=== PATIENT | male | born 1955 | race Caucasian/White ===

== ENCOUNTER → 2018-11-25 08:26 | Outpatient (CLI) | payer MEDICARE, OTHER, SELFPAY ==
[2018-11-25 09:36] LABS: Add Manual Diff / Slide Review NO; Basophils Absolute Auto 0 /uL (0-100); Basophils Percent Auto 0.7 % (0-2); Eosinophils Absolute Auto 200 /uL (0-450); Eosinophils Percent Auto 2.6 % (2-4); Hematocrit 48.4 % (41-53); Hemoglobin 16.1 g/dL (13.5-17.5); Lymphocytes Absolute Auto 800 /uL (1100-4500); Lymphocytes Percent Auto 13.7 % (25-40); Mean Corpuscular HGB Conc 33.3 % (30-36); Mean Corpuscular Hemoglobin 29.8 PG (26-34); Mean Corpuscular Volume 89.4 fL (80-100); Monocytes Absolute Auto 600 /uL (0-900); Monocytes Percent Auto 9.6 % (3-14); Neutrophils Absolute Auto 4300 /uL (1500-7000); Neutrophils Percent Auto 73.4 % (50-75); Platelet Count 215 X10^3/uL (150-400); Red Blood Cell Count 5.41 X10^6/uL (4.5-5.9); Red Cell Distribution Width 15.3 % (11.6-14.8); White Blood Cell Count 5.9 X10^3/uL (4.5-11.0)
[2018-11-25 10:05] LABS: Alanine Aminotransferase 28 IU/L (21-72); Albumin 4.1 g/dL (3.5-5.0); Albumin Globulin Ratio 1.4 (1.0-2.8); Alkaline Phosphatase 89 U/L (38-126); Aspartate Aminotransferase 31 IU/L (17-59); BUN Creatinine Ratio 14.2 (6-22); Bilirubin Total 0.6 mg/dL (0.2-1.3); Blood Urea Nitrogen 17 mg/dL (9-20); Calcium 8.8 mg/dL (8.4-10.2); Carbon Dioxide 26 mmol/L (22-32); Chloride 106 mmol/L (98-107); Cholesterol 195 mg/dL (140-199); Estimated Glomerular Filt Rate > 60.0 mL/min (>60); Glucose 84 mg/dL (80-110); HDL Cholesterol 43 mg/dL (40-60); HEMOLYSIS < 15 (0-50); LDL Cholesterol Calculated 129 mg/dL (<100); Potassium 4.2 mmol/L (3.4-5.1); Sodium 141 mmol/L (137-145); Total Protein 7.1 g/dL (6.3-8.2); Triglycerides 116 mg/dL (35-150)
[2018-11-25 10:08] LABS: Hemoglobin A1C% w Est Avg Glu 5.4 % (4.0-6.0)
[2018-11-25 10:34] LABS: Prostate Specific Antigen Scrn 2.34 ng/mL (0.1-4.0)
== END ==
PROVIDERS: Visit Provider Physician Assistant
DX: N39.0 Urinary tract infection, site not specified (principal); R31.9 Hematuria, unspecified; Z12.5 Encounter for screening for malignant neoplasm of prostate; I11.0 Hypertensive heart disease with heart failure; E78.5 Hyperlipidemia, unspecified; Z83.3 Family history of diabetes mellitus
CPT/HCPCS: 36415; 80053; 80061; 83036; 85025; G0103

== ENCOUNTER → 2018-11-27 11:14 | Outpatient (CLI) | payer MEDICARE, OTHER, SELFPAY ==
--- NOTE | 2018-11-27 | DI.CT.S_ITS ---
PROCEDURE: CT ABDOMEN PELVIS WO/W CON INDICATIONS: GROSS HEMATURIA TECHNIQUE: Optional 5 mm thick noncontrast images acquired from the diaphragm to the symphysis pubis. After the administration of intravenous contrast, 5 mm thick images acquired from the diaphragm to the symphysis pubis after a 10-minute delay. 2 mm thick coronal and sagittal reformats were then performed of the kidneys and ureters. For radiation dose reduction, the following was used: automated exposure control, adjustment of mA and/or kV according to patient size. COMPARISON: None. FINDINGS: Image quality: Excellent. Lung bases: Lung bases are clear. Heart size is normal. Urinary system: Both kidneys are normal in size, without hydronephrosis or nephrolithiasis on pre-contrast images. Small bilateral peripelvic cysts are seen No perinephric fat stranding. There is normal bilateral renal enhancement. Renal calyces appear normal in morphology when filled with contrast. Opacified portions of both ureters demonstrate normal caliber. Mild diffuse bladder wall thickening is seen. Enlarged prostate gland with mass effect on floor of urinary bladder is also noted. No definite discrete bladder wall mass. No calcified bladder stones. Appendix is visualized and is within normal limits sigmoid diverticulosis is seen, no CT evidence of acute diverticulitis. Other solid organs: Liver is normal in size and enhancement. Gallbladder is within normal limits. Biliary system is non dilated. Pancreas enhances normally. Spleen is normal in size and enhancement. No adrenal nodules. Peritoneum and bowel: Bowel loops demonstrate normal wall thickness and caliber. No free fluid or air. Nodes and vessels: No retroperitoneal or mesenteric adenopathy by size criteria. Aorta and inferior vena cava are normal in size. Abdominal wall: No ventral hernias. Pelvis: No pathologic free pelvic fluid. No inguinal hernias or adenopathy. Bones: No suspicious bony lesions. No vertebral body compression fractures. IMPRESSION: 1. Mild diffuse bladder wall thickening, no discrete bladder wall mass. Enlarged prostate gland with significant mass effect on floor of urinary bladder. Finding could represent chronic bladder outlet obstruction. Cystitis cannot be excluded. No renal stone hydronephrosis. Normal appearing bilateral ureters. 2. No bowel obstruction. No abnormal bowel wall thickening. Normal appendix. No free fluid of air. Dictated by: Henry Marquez M.D. on 11/27/2018 at 12:40 Approved by: Henry Marquez M.D. on 11/27/2018 at 14:24
== END ==
PROVIDERS: PCP Internal Medicine; Visit Provider Internal Medicine
DX: R31.0 Gross hematuria (principal); N40.0 Benign prostatic hyperplasia without lower urinary tract symptoms
CPT/HCPCS: 74178; Q9967

== ENCOUNTER → 2020-05-06 08:43 | Outpatient (CLI) | payer MEDICARE, OTHER, SELFPAY ==
[2020-05-06 09:59] LABS: Alanine Aminotransferase 33 IU/L (<50); Albumin 4.1 g/dL (3.5-5.0); Albumin Globulin Ratio 1.2 (1.0-2.8); Alkaline Phosphatase 98 U/L (38-126); Aspartate Aminotransferase 33 IU/L (17-59); BUN Creatinine Ratio 17.3 (6-22); Bilirubin Total 0.6 mg/dL (0.2-1.3); Blood Urea Nitrogen 19 mg/dL (9-20); Carbon Dioxide 32 mmol/L (22-32); Chloride 103 mmol/L (98-107); Cholesterol 140 mg/dL (140-199); Estimated Glomerular Filt Rate > 60.0 mL/min (>60); Globulin 3.4 g/dL (1.7-4.1); Glucose 92 mg/dL (80-110); HDL Cholesterol 43 mg/dL (40-60); HEMOLYSIS < 15 (0-50); LDL Cholesterol Calculated 73 mg/dL (<100); Potassium 4.5 mmol/L (3.4-5.1); Sodium 140 mmol/L (137-145); Total Protein 7.5 g/dL (6.3-8.2); Triglycerides 121 mg/dL (35-150)
[2020-05-07 06:07] LABS: PSA Free % 25.9 % (.); PSA, Total 2.2 ng/mL (0.0-4.0)
== END ==
PROVIDERS: PCP Internal Medicine; Referring Provider Internal Medicine; Visit Provider Internal Medicine
DX: I10 Essential (primary) hypertension (principal); E78.5 Hyperlipidemia, unspecified; Z12.5 Encounter for screening for malignant neoplasm of prostate
CPT/HCPCS: 36415; 80053; 80061; 84153; 84154; G0103

== ENCOUNTER → 2020-09-13 10:05 | Outpatient (CLI) | payer MEDICARE, OTHER, SELFPAY ==
[2020-09-13 11:47] LABS: COVID19 -Nasal RAPID Negative (Negative)
== END ==
PROVIDERS: PCP Internal Medicine; Visit Provider Student in an Organized Health Care Education/Training Program
DX: Z01.812 Encounter for preprocedural laboratory examination (principal); Z20.822 Contact with and (suspected) exposure to COVID-19
CPT/HCPCS: 87635; C9803

== ENCOUNTER 2020-09-15 07:27 | Day surgery (SDC) | payer MEDICARE, OTHER, SELFPAY ==
--- NOTE | 2020-09-15 | PATH_ITS ---
[facility] Accession Number: [id number] . 01 Material submitted: . PART A: colon - ASCENDING PART B: colon - TRANSVERSE . 02 Diagnosis: A. Ascending Colon, Biopsy: Tubular adenoma. . B. Transverse Colon, Biopsy: Tubular adenoma. MRV 09/20/2020 1519 Local . 02 Electronically signed: . Bing Russell MD, Pathologist NPI- [id number] . 01 Gross description: . A. Specimen A is received in formalin labeled ascending and consists of two urbano-pink fragments of soft tissue, measuring 0.5 x 0.4 x 0.3 cm in aggregate. The specimen is entirely submitted in cassette A1. B. Specimen B is received in formalin labeled transverse and consists of a 0.3 x 0.3 x 0.2 cm urbano-pink fragment of soft tissue, which is entirely submitted in cassette B1. ([id number]) /[facility] 09/16/2020 1636 Local . 02 Pathologist provided ICD-10: D12.2, D12.6 . 02 CPT . 423802, 184242 Performed at: 01 [facility] [address] [facility] [place], [place], [place] [id number] MD Malcolm Cohen MD Phone: [phone] Performed at: 02 [facility] [address] [place], [place] [id number] MD Bing Russell MD Phone: [phone]
[2020-09-15 08:09] VITALS: BP 118/70; PULSE 53; RESP 18; TEMP 36.3; O2SAT 95; BMI 37.6
--- NOTE | 2020-09-15 08:30 | PM.HP.1 ---
History of Present Illness History of Present Illness Date Patient Seen: 09/15/20 Chief complaint: SDC Narrative: History of polyps Patient History Family & Social History Social History: household members spouse Tobacco & Substance use: Smoking Status Never smoker alcohol intake never Substance Use Type does not use Meds Home Medications and Allergies Home Medications Medication Instructions Recorded Confirmed Type Eliquis 5 mg PO BID #0 02/05/16 09/15/20 History flecainide 100 mg PO SEE INSTRUCTIONS #0 02/05/16 09/15/20 History losartan [Cozaar] 25 mg PO BIDP PRN #0 02/05/16 09/15/20 History timolol maleate 1 drp OPHTH #0 02/05/16 11/23/18 History latanoprost EYE-BOTH 11/23/18 11/23/18 History Allergies Allergy/AdvReac Type Severity Reaction Status Date / Time shellfish derived Allergy Intermediate Swelling Verified 09/15/20 08:06 of Lip/Tongue/Throat Exam Vital Signs (past 8 hours): - 09/15/20 08:09 Temperature 97.4 F L Pulse Rate 53 L Respiratory Rate 18 Blood Pressure 118/70 Pulse Oximetry 95 Oxygen Delivery Method Room Air Narrative Exam Narrative: Oropharynx free of lesion Chest clear to auscultation percussion Cardiac exam reveals no S3 or murmur Assessment & Plan Assessment & Plan narrative: History of colon polyps need for follow-up colonoscopy. Risks, benefits, alternatives have been explained.
--- NOTE | 2020-09-15 08:33 | PM.OP.ENDO ---
Operative Date/Time/Diagnoses Date of procedure: 09/15/20 Pre-op diagnosis: See indication and findings Procedure & Clinicians Study performed: Colonoscopy Same procedure as scheduled: Yes Indications: History of colon polyps Surgeon: Keshawn Carlson Procedure Notes Procedure in detail: After informed consent was obtained the patient was placed in left lateral decubitus position. The video colonoscope was introduced the rectum slowly advanced cecum. Preparation was good. On slow withdrawal mucosa was carefully examined. The scope was removed. The patient tolerated procedure well. Blood loss none Complications none Sedation Total sedation time 20 minutes Versed 4 mg fentanyl 100 mg IV titration Findings 1. 5 mm polyp ascending colon Jumbo biopsy removed completely 2. 4 mm polyp in the transverse colon Jumbo biopsy removed completely 3. Scattered sigmoid diverticula 4. Otherwise negative colonoscopy to cecum We will merely await the pathology from these polypectomies to determine whether he should follow-up in 5 years for 7-10 years
[2020-09-15] MEDS: MIDAZOLAM 5 MG/5 ML VIAL IV (08:34)
[2020-09-15] MEDS: fentaNYL 250 MCG/5 ML INJ IV (08:34)
[2020-09-15 09:03] VITALS: BP 96/53; PULSE 54; RESP 16; TEMP 36.1; O2SAT 95
[2020-09-15 09:08] VITALS: BP 99/62; PULSE 50; RESP 18; O2SAT 96
[2020-09-15 09:12] VITALS: BP 109/64; PULSE 50; RESP 16; TEMP 36.6; O2SAT 94
[2020-09-15 09:33] VITALS: BP 116/67; PULSE 54; RESP 18; TEMP 36.4; O2SAT 95
== END 2020-09-15 09:37 | disposition home or self-care (01) ==
PROVIDERS: PCP Internal Medicine; Referring Provider Internal Medicine; Visit Provider Internal Medicine Gastroenterology
PROC: 0DJD8ZZ Inspection of Lower Intestinal Tract, Via Natural or Artificial Opening Endoscopic (ICD-10-PCS; CPT 45378; principal; 2020-09-15 08:30)
DX: Z12.11 Encounter for screening for malignant neoplasm of colon (principal); Z86.010 Personal history of colon polyps; K57.30 Diverticulosis of large intestine without perforation or abscess without bleeding; D12.2 Benign neoplasm of ascending colon; D12.6 Benign neoplasm of colon, unspecified
CPT/HCPCS: 45380; J2250; J3010

== ENCOUNTER → 2021-11-11 12:06 | Outpatient (CLI) | payer MEDICARE, OTHER, SELFPAY ==
--- NOTE | 2021-11-11 | DI.US.S_ITS ---
PROCEDURE: US ABDOMEN COMPLETE INDICATIONS: EXCESSIVE BELCHING TECHNIQUE: Real-time scanning was performed of the abdominal and retroperitoneal organs, with image documentation. COMPARISON: None. FINDINGS: Liver: Liver is normal in size and homogeneous in echotexture. Gallbladder: Gallbladder is sonographically normal. No gallstones. No gallbladder wall thickening. No pericholecystic fluid. No sonographic Peters sign. Biliary ducts: Intrahepatic bile ducts are non-dilated. Extrahepatic bile duct caliber measures 3.8 mm. Normal is 6-7 mm or less in diameter, or 10 mm or less post-cholecystectomy. Pancreas: Not visualized due to bowel gas and cannot be evaluated Spleen: Spleen is normal in size and homogeneous in echotexture. Kidneys: Kidneys are normal in size and echotexture. Right kidney measures 12.6 cm long; left kidney measures 13.1 cm long. No hydronephrosis or nephrolithiasis. No solid masses. 1.4 x 1.2 x 1.2 centimeter left renal cyst. Aorta: Not visualized due to bowel gas and cannot be evaluated. Iliacs: Not visualized due to bowel gas and cannot be evaluated IVC: Intrahepatic inferior vena cava is patent. Miscellaneous: No free abdominal fluid. IMPRESSION: No sonographic abnormality identified. Dictated by: Sara Flores MD, PhD on 11/11/2021 at 15:03 Approved by: Sara Flores MD, PhD on 11/11/2021 at 15:05
== END ==
PROVIDERS: PCP Internal Medicine; Referring Provider Internal Medicine Gastroenterology; Visit Provider Internal Medicine Gastroenterology
DX: R14.2 Eructation (principal)
CPT/HCPCS: 76700

== ENCOUNTER → 2021-11-30 07:33 | Outpatient (CLI) | payer MEDICARE, OTHER, SELFPAY ==
--- NOTE | 2021-11-30 | DI.NM.S_ITS ---
PROCEDURE: NM HIDA WITH CCK PHARMACEUTICAL: 5.5 mCi Tc-99m mebrofenin IV; 2.4 mcg CCK IV. INDICATIONS: Eructation TECHNIQUE: Following intravenous administration of Tc-99m mebrofenin, sequential anterior abdominal images were obtained. To evaluate the contractile response of the gallbladder in response to Cholecystokinin (CCK), sincalide (0.02 ?g/kg) was administered by slow intravenous infusion approximately 60 minutes after the administration of the radiopharmaceutical. Sequential imaging was continued for 30 minutes after the start of CCK infusion. Gallbladder ejection fraction was calculated. COMPARISON: [facility], US ABDOMEN COMPLETE, 11/11/2021, 12:17. FINDINGS: Biliary scan: There is normal tracer uptake and excretion by the liver. There is normal visualization of the intrahepatic ducts, common bile duct, and gallbladder. There is normal tracer transit into the duodenum. CCK stimulation: There is poor contractile response of the gallbladder to CCK infusion. The calculated gallbladder ejection fraction is 2%; normal values are above 35%. It has been shown that any patient abdominal pain after CCK administration is related to the rate of CCK injection, rather than to any underlying gallbladder disease (Clinical Nuclear Medicine 2012; 37: 63-70. Journal of Nuclear Medicine 2014; 55: 1-9). IMPRESSION: 1. Normal filling of gallbladder. No evidence for acute cholecystitis. 2. Poor contractile response of gallbladder to CCK stimulation, consistent with gallbladder dyskinesia. Dictated by: Liz Tejada M.D. on 11/30/2021 at 11:19 Approved by: Liz Tejada M.D. on 11/30/2021 at 11:21
== END ==
PROVIDERS: PCP Internal Medicine; Referring Provider Internal Medicine Gastroenterology; Visit Provider Internal Medicine Gastroenterology
DX: R14.2 Eructation (principal)
CPT/HCPCS: 78227; A9537; J2805

== ENCOUNTER → 2022-01-02 12:18 | Outpatient (CLI) | payer MEDICARE, OTHER, SELFPAY ==
[2022-01-03 17:11] LABS: Interpretation Negative (Negative)
== END ==
PROVIDERS: PCP Internal Medicine; Referring Provider Surgery; Visit Provider Surgery
DX: R10.13 Epigastric pain (principal)
CPT/HCPCS: 83013; 99213

== ENCOUNTER → 2022-02-01 11:41 | Outpatient (CLI) | payer MEDICARE, OTHER, SELFPAY ==
[2022-02-01 12:41] LABS: COVID19 -Nasal RAPID Negative (Negative)
== END ==
PROVIDERS: PCP Internal Medicine; Visit Provider Surgery
DX: Z01.812 Encounter for preprocedural laboratory examination (principal); Z20.822 Contact with and (suspected) exposure to COVID-19
CPT/HCPCS: 87635; C9803

== ENCOUNTER → 2022-02-08 10:47 | Outpatient (CLI) | payer MEDICARE, OTHER, SELFPAY ==
--- NOTE | 2022-02-08 10:53 | DI.RAD.S_ITS ---
PROCEDURE: FL BARIUM SWALLOW INDICATIONS: eructation COMPARISON: None. FINDINGS: Function: There is normal esophageal peristalsis. No spontaneous gastroesophageal reflux. There is normal transit of a calibrated barium tablet through the esophagus into the stomach. Morphology: Air-contrast images demonstrate normal mucosal morphology. Single contrast views show no esophageal strictures, extrinsic mass effects, or diverticula. Limited images of the stomach demonstrate normal appearance. IMPRESSION: Normal barium swallow Dictated by: Saw Chakraborty M.D. on 02/08/2022 at 16:39 Approved by: Saw Chakraborty M.D. on 02/08/2022 at 16:39
== END ==
PROVIDERS: PCP Internal Medicine; Referring Provider Surgery; Visit Provider Surgery
DX: R10.13 Epigastric pain (principal)
CPT/HCPCS: 74220

== ENCOUNTER 2022-06-22 06:42 | Day surgery (SDC) | payer MEDICARE, OTHER, SELFPAY ==
[2022-06-22] VITALS (7 sets, daily range): BP systolic 135–186; BP diastolic 72–100; PULSE 64–68; RESP 16–69; TEMP 36.1–36.6; O2SAT 92–98; BMI 35.9
--- NOTE | 2022-06-22 | PATH_ITS ---
[facility] Accession Number: [id number] No. of containers..03 Tissue . 01 Material submitted: . PART A: gastrointestinal site - ANTRUM BIOPSIES PART B: gastrointestinal site - GASTRIC BODY BIOPSIES PART C: esophagus, E-G Junction - GE JUNCTION . 01 Diagnosis: A. Antrum, Biopsy: Gastric mucosa with mild chronic inflammation and focal intestinal metaplasia. No Helicobacter pylori organisms identified on immunohistochemical evaluation. No dysplasia, or malignancy identified. . B. Gastric Body, Biopsy: Gastric mucosa with mild chronic inflammation. No Helicobacter pylori organisms identified on immunohistochemical evaluation. No intestinal metaplasia, dysplasia, or malignancy identified. . C. Gastroesophageal Junction, Biopsy: Squamous mucosa with mild reactive changes and gastric glandular mucosa with chronic and active inflammation. No goblet cell metaplasia or fungal organisms identified on special stain. No dysplasia or malignancy identified. [facility] 07/03/2022 1540 Local . 01 Electronically signed: . Lali Lau MD, Pathologist NPI- [id number] . 01 Gross description: . Part A: ANTRUM BIOPSIES: Received in formalin are 3 fragment(s) of urbano, soft tissue measuring 0.3 x 0.2 x 0.1 cm to 0.2 x 0.1 x 0.1 cm submitted entirely in 1 cassette(s) Part B: GASTRIC BODY BIOPSIES: Received in formalin are multiple fragment(s) of urbano, soft tissue measuring 0.8 x 0.4 x 0.1 cm in aggregate submitted entirely in 1 cassette(s) Part C: GE JUNCTION: Received in formalin are 2 fragment(s) of urbano, soft tissue measuring 0.4 x 0.1 x 0.1 cm to 0.2 x 0.1 x 0.1 cm submitted entirely in 1 cassette(s) /[facility] 06/23/2022 [facility] Local . 01 Microscopic: . A. An immunohistochemical stain was performed to evaluate for Helicobacter organisms and is negative. The control stain showed appropriate reactivity. . B. An immunohistochemical stain was performed to evaluate for Helicobacter organisms and is negative. The control stain showed appropriate reactivity. . * This test was developed and its performance characteristics determined by [employer]. It has not been cleared or approved by the U.S. Food and Drug Administration. The FDA has determined that such clearance or approval is not necessary. This test is used for clinical purposes. It should not be regarded as investigational or for research. . 01 Pathologist provided ICD-10: K29.70, K21.9 . 01 CPT . 634668, 247029, 234975, Z26838, 369097 Specimen Comment: A courtesy copy of this report has been sent to [phone] Performed at: 01 [facility] [address] [place] [address], [place], [place] [id number] MD Malcolm Cohen MD Phone: [phone]
[2022-06-22] MEDS: LACTATED RINGERS 1,000 ML 150 ML IV (07:36)
--- NOTE | 2022-06-22 07:37 | PM.HP.1 ---
History of Present Illness History of Present Illness Date Patient Seen: 06/22/22 Time Patient Seen: 07:37 Chief complaint: SDC Narrative: Prashant is here for his EGD. Please see prior office notes for details. Patient History Surgical History (Updated 01/02/22 @ 11:58 by Any Reese RN) H/O cardiac radiofrequency ablation History of knee surgery Family & Social History Social History: household members spouse Tobacco & Substance use: Smoking Status Never smoker alcohol intake never Substance Use Type does not use Meds Home Medications and Allergies Home Medications Medication Instructions Recorded Confirmed Type apixaban 5 mg tablet (Eliquis) 5 mg PO BID ##0 02/05/16 06/22/22 History flecainide 100 mg tablet 100 mg PO SEE INSTRUCTIONS ##0 02/05/16 06/22/22 History timolol maleate 0.5 % eye drops 1 drp OPHTH DAILY ##0 02/05/16 01/02/22 History latanoprost drp EYE-BOTH DAILY 11/23/18 01/02/22 History atorvastatin 20 mg tablet 20 mg PO DAILY 01/02/22 06/22/22 History losartan 50 mg tablet (Cozaar) 50 mg PO BIDP PRN Atrial 01/02/22 06/22/22 History Fibrillation #0 tabs metoprolol tartrate 25 mg tablet 25 mg PO DAILY 01/02/22 06/22/22 History Allergies Allergy/AdvReac Type Severity Reaction Status Date / Time shellfish derived Allergy Intermediate Swelling Verified 01/02/22 11:04 of Lip/Tongue/Throat Exam Vital Signs (past 8 hours): - 06/22/22 07:22 Temperature 97 F L Pulse Rate 65 Respiratory Rate 20 Blood Pressure 186/72 H Pulse Oximetry 98 Oxygen Delivery Method Room Air Oxygen Delivery Method Room Air Const General: No acute distress Assessment & Plan Assessment and plan (1) Dyspepsia: Status: Acute Plan Plan for esophagogastroduodenoscopy. Reviewed risks and benefits he would like to proceed. Time Spent With Patient Critical Care time: I spent a total of [] minutes of critical care time on this patient's care today; this time is exclusive of procedural time.
--- NOTE | 2022-06-22 08:06 | PM.OP.EGD ---
Operative Date/Time/Diagnoses Date of procedure: 06/22/22 Time of procedure: 08:06 Pre-op diagnosis: Dyspepsia Post-op diagnosis: same Procedure & Clinicians Study performed: Esophagogastroduodenoscopy Same procedure as scheduled: Yes Surgeon: Izaiah Pyle Procedure Notes Procedure in detail: Surgeon: Izaiah Pyle MD Anesthesia: Dr. Pham A timeout was performed. A bite blocked was placed. The patient was positioned in the left lateral decubitus position. Anesthesia was administered. The endoscope was inserted through the bite block and passed through the esophagus and stomach and into the duodenum. The duodenal mucosa appeared normal. The scope was withdrawn into the duodenal bulb and no abnormalities were seen. The scope was withdrawn into the stomach. There was some mild antritis and gastritis in the body of the stomach. Biopsies were taken from the antrum and body of the stomach. The scope was retroflexed and no hiatal hernia was seen. The scope was withdrawn into the esophagus and there was some mild distal esophagitis and random biopsies were taken from the GE junction. The remainder of the esophagus was normal. The scope was withdrawn. The patient was awakened and brought to recovery. Sedation time: 11 minutes Findings: Mild antritis, gastritis and distal esophagitis Post-procedure Disposition: PACU
== END 2022-06-22 08:45 | disposition home or self-care (01) ==
PROVIDERS: PCP Internal Medicine; Referring Provider Surgery; Visit Provider Surgery
PROC: 0DJ08ZZ Inspection of Upper Intestinal Tract, Via Natural or Artificial Opening Endoscopic (ICD-10-PCS; CPT 43235; principal; 2022-06-22 07:45)
DX: R10.13 Epigastric pain (principal); K20.90 Esophagitis, unspecified without bleeding; K29.50 Unspecified chronic gastritis without bleeding
CPT/HCPCS: 43239

== ENCOUNTER → 2022-07-19 07:46 | Outpatient (CLI) | payer MEDICARE, OTHER, SELFPAY ==
--- NOTE | 2022-07-19 07:49 | DI.NM.S_ITS ---
PROCEDURE: NM GASTRIC EMPTYING STUDY RADIOPHARMACEUTICAL: 1 mCi Tc-99m sulfur colloid in an egg sandwich. INDICATIONS: Eructation TECHNIQUE: A Tc-99m labeled sulfur colloid labeled egg sandwich or oatmeal was served to the patient. Anterior and posterior planar images of the abdomen were obtained at 0 minutes and 30 minutes, then at hourly intervals up to 4 hours. The patient was upright and ambulating during the interval. COMPARISON: None. FINDINGS: The stomach has normal size, morphology, and position. There is normal emptying of solid gastric contents from the stomach by visual inspection. No gastroesophageal reflux is visualized. The percentage of tracer retained at specific time points are as follows: Time point Percent gastric retention Normal range 30 minutes 70% 70% or more 1 hour 42% 30% to 90% 2 hours 14% 60% or less 3 hours 11% 30% or less 4 hours 2% 10% or less IMPRESSION: Gastric emptying values within normal limits. Dictated by: Herb Paula M.D. on 07/21/2022 at 8:48 Approved by: Herb Paula M.D. on 07/21/2022 at 8:50
== END ==
PROVIDERS: PCP Internal Medicine; Referring Provider Surgery; Visit Provider Surgery
DX: R10.13 Epigastric pain (principal)
CPT/HCPCS: 78264; A9541

== ENCOUNTER → 2023-03-06 13:41 | Outpatient (CLI) | payer MEDICARE, OTHER, SELFPAY ==
[2023-03-06 15:08] LABS: Alanine Aminotransferase 19 IU/L (<50); Albumin 4.2 g/dL (3.5-5.0); Albumin Globulin Ratio 1.2 (1.0-2.8); Alkaline Phosphatase 105 U/L (38-126); Aspartate Aminotransferase 27 IU/L (17-59); BUN Creatinine Ratio 16.3 (6-22); Bilirubin Total 0.3 mg/dL (0.2-1.3); Blood Urea Nitrogen 20 mg/dL (9-20); Calcium 9.3 mg/dL (8.4-10.2); Carbon Dioxide 28 mmol/L (22-32); Chloride 103 mmol/L (98-107); Estimated Glomerular Filt Rate > 60 mL/min (>60); Globulin 3.5 g/dL (1.7-4.1); Glucose 86 mg/dL (80-110); HEMOLYSIS < 15 (0-50); Potassium 4.4 mmol/L (3.4-5.1); Sodium 138 mmol/L (137-145); Total Protein 7.7 g/dL (6.3-8.2)
== END ==
PROVIDERS: PCP Internal Medicine; Referring Provider Internal Medicine Cardiovascular Disease; Visit Provider Internal Medicine Cardiovascular Disease
DX: I48.92 Unspecified atrial flutter (principal); I48.0 Paroxysmal atrial fibrillation
CPT/HCPCS: 36415; 80053

== ENCOUNTER → 2024-02-29 10:58 | Outpatient (CLI) | payer MEDICARE, OTHER, SELFPAY ==
--- NOTE | 2024-02-29 | DI.US.S_ITS ---
PROCEDURE: US CAROTID DOPPLER BI INDICATIONS: CENTRAL CRANIAL ARTERY OCCLUSION-EYE TECHNIQUE: Color and pulse Doppler interrogation was performed of both carotid systems, with image documentation and velocity measurements. COMPARISON: [facility], , CAROTID ARTERY DOPPLER BILAT, 06/15/2016, 14:47. FINDINGS: Stenosis calculations are based on SRU (Society of Radiologists in Ultrasound) criteria. Right side: Brachial blood pressure: Unable to obtain Common carotid artery peak systolic velocity: 108 cm/sec. Internal carotid artery peak systolic velocity: 83 cm/sec. Internal carotid artery end diastolic velocity: 35 cm/sec. External carotid artery peak systolic velocity: Not well seen ICA/CCA peak systolic ratio: 0.7 . Matias scale imaging description: No significant plaque Percent internal carotid artery stenosis: No significant stenosis . Vertebral artery: Flow direction is antegrade. Left side: Brachial blood pressure: Unable to obtain Common carotid artery peak systolic velocity: 138 cm/sec. Internal carotid artery peak systolic velocity: 75 cm/sec. Internal carotid artery end diastolic velocity: 24 cm/sec. External carotid artery peak systolic velocity: 80 cm/sec. ICA/CCA peak systolic ratio: 0.5 . Matias scale imaging description: No significant plaque Percent internal carotid artery stenosis: No significant stenosis . Vertebral artery: Flow direction is antegrade. IMPRESSION: No significant stenosis of the bilateral terminal carotid arteries. Incidental note of a right thyroid nodule measuring 2.7 cm. Consider dedicated thyroid ultrasound for further evaluation if not previously obtained. Mild prominence of the proximal left ICA measuring up to 1.1 cm, may represent mild aneurysmal dilatation versus normal appearance. Consider follow-up ultrasound to assess stability. Dictated by: Alfredito Olmedo M.D. on 02/29/2024 at 17:17 Approved by: Alfredito Olmedo M.D. on 02/29/2024 at 17:20
--- NOTE | 2024-02-29 | DI.ECHO.S_ITS ---
[facility] : : [address] : : [place] : : [id number] : : Phone: [phone] Echocardiogram Report + + :Name: KATELYN LANGE Study Date: 02/29/2024 Height: 71 in : :[facility] ReadingLocation: Weight: 265 lb : : Gender: Male BSA: 2.4 m2 : :: 1955 Age: 69 yrs BP: 172/99 mmHg: :Reason For Study: CENTRAL CRANIAL ARTERY OCCLUSION : :Ordering Physician: JOAO, : :COCO Performed By: Tam Cortes : :Referring: COCO SHEPHERD : + + Interpretation Summary The left ventricle is normal in size. Left ventricular wall thickness is mildly increased. The left ventricular ejection fraction is normal. The ejection fraction is estimated to be 55-60%. No obvious LV thrombus. Diastolic parameters suggest a pseudonormalization pattern, consistent with probable elevated filling pressures. The right ventricle is normal in size and function. There is mild to moderate aortic regurgitation. The right ventricular systolic pressure is estimated to be at least 28 mmHg based on an estimated right atrial pressure of 3 mm Hg. The aortic arch could not be visualized. Procedure: A two-dimensional transthoracic echocardiogram with color flow and Doppler was performed. The study quality was technically good. There is no prior echocardiogram noted for this patient. The patient was in sinus bradycardia with heart rates between 53-58 bpm during the exam. Left Ventricle: The left ventricle is normal in size. Left ventricular wall thickness is mildly increased. There is no ventricular septal defect visualized. The ejection fraction is estimated to be 55-60%. The left ventricular ejection fraction is normal. There are no focal wall motion abnormalities. Diastolic parameters suggest a pseudonormalization pattern, consistent with probable elevated filling pressures. Right Ventricle: The right ventricle is normal in size and function. Atria: The left atrium is mildly dilated. Right atrial size is normal. The interatrial septum grossly appears intact with no obvious evidence for an atrial septal defect. Mitral Valve: There is mild mitral annular calcification. There is mild mitral regurgitation. Aortic Valve: The aortic valve is trileaflet. The aortic valve opens well. There is no aortic valve stenosis. There is mild to moderate aortic regurgitation. Tricuspid Valve: The tricuspid valve is normal. There is trace tricuspid regurgitation. The right ventricular systolic pressure is estimated to be at least 28 mmHg based on an estimated right atrial pressure of 3 mm Hg. Pulmonic Valve: The pulmonic valve is normal in structure and function. There is no pulmonic valvular regurgitation. Great Vessels: The aortic root is normal size. The dimensions of the ascending aorta are normal. The aortic arch could not be visualized. The pulmonary artery is normal size. The IVC is of normal diameter and collapses greater than 50% with a sniff. This suggests a low right atrial pressure of 3 mm Hg. Pericardium/ Pleura There is no pericardial effusion. There is an anterior echo-free space consistent with a fat pad. There is no pleural effusion. MMode/2D Measurements & Calculations LVIDd: 5.5 cm LVOT diam: 2.2 cm LVIDs: 3.6 cm Ao root diam: 3.3 cm FS: 34.0 % asc Aorta Diam: 3.5 cm EPSS: 0.83 cm IVSd: 1.2 cm LVPWd: 1.2 cm LV marquez. diameter/BSA (cm/m^2): 2.3 LV sys. diameter/BSA (cm/m^2): 1.5 LA A2 area: 27.3 cm2 RA long axis: 4.8 cm LA A4 area: 23.1 cm2 RA area: 13.9 cm2 LA length (vol): 6.0 cm RA vol: 34.3 ml LA vol: 89.6 ml RA : 14.4 ml/m2 LA vol index: 37.7 ml/m2 IVC diam: 2.0 cm RVD1 (basal): 3.8 cm RVD2 (mid): 3.3 cm TAPSE: 2.6 cm Doppler Measurements & Calculations Ao V2 max: 137.8 cm/sec LVOT Max Jose Luis: 97.3 cm/sec Ao V2 mean: 97.2 cm/sec LV V1 max P.8 mmHg Ao max P.6 mmHg LV V1 VTI: 22.2 cm Ao mean P.3 mmHg PABLO(I,D): 2.5 cm2 Ao V2 VTI: 33.3 cm PABLO(V,D): 2.6 cm2 sev ratio: 0.67 PABLO indexed to BSA (cm^2/m^2): 1.0 MV E max jose luis: 70.8 cm/sec TR max jose luis: 250.1 cm/sec MV A max jose luis: 51.7 cm/sec TR max P.0 mmHg MV E/A: 1.4 PA V2 max: 93.1 cm/sec Med Peak E' Jose Luis: 4.4 cm/sec PA V2 mean: 62.2 cm/sec E/E' med: 16.2 PA mean P.7 mmHg Lat Peak E' Jose Luis: 6.8 cm/sec PA pr(Accel): 41.3 mmHg E/E' lat: 10.5 E/e' average: 13.3 MV dec time: 0.29 sec SV(LVOT): 83.1 ml Reading Physician:12:53 PM
== END ==
PROVIDERS: PCP Internal Medicine; Referring Provider Ophthalmology; Visit Provider Ophthalmology
DX: H34.8130 Central retinal vein occlusion, bilateral, with macular edema (principal); I08.0 Rheumatic disorders of both mitral and aortic valves; E04.1 Nontoxic single thyroid nodule
CPT/HCPCS: 93306; 93880

== ENCOUNTER → 2024-03-14 09:07 | Outpatient (CLI) | payer MEDICARE, OTHER, SELFPAY ==
--- NOTE | 2024-03-14 09:08 | DI.US.S_ITS ---
PROCEDURE: US THYROID INDICATIONS: RIGHT LOBE NODULE TECHNIQUE: Real-time scanning was performed of the thyroid gland, with image documentation. COMPARISON: [facility], US, US CAROTID DOPPLER , 02/29/2024, 13:35. FINDINGS: Thyroid: Right lobe measures 4.8 x 2.7 x 2.9 cm. Left lobe measures 3.3 x 1.5 x 0.9 cm. Isthmus is 0.2 cm thick. Echotexture is heterogeneous. Nodule number: 1 Location: Inferior right thyroid Size: 2.6 x 2.3 x 2.6 cm. Composition: Predominantly solid Echogenicity: Mixed echogenicity, although largely hypoechoic Shape: wider than tall. Margins: Smooth Echogenic foci: None. Total points: 4 ACR TI-RADS category: 4 IMPRESSION: There is a nodule seen at the inferior pole of the right thyroid. An ultrasound guided thyroid biopsy is recommended, by published criteria. ACR TI-RADS definitions and recommendations: TI-RADS 1 (benign): 0 points. FNA not needed. TI-RADS 2 (not suspicious): 2 points. FNA not needed. TI-RADS 3: 3 points. * FNA if 2.5 cm or larger, follow up if 1.5 cm or larger (at 1, 3, and 5 years). TI-RADS 4: 4-6 points. * FNA if 1.5 cm or larger, follow up if 1 cm or larger (at 1, 2, 3, and 5 years). TI-RADS 5: 7 points or more. * FNA if 1 cm or larger, follow up if 0.5 cm or larger (every year for 5 years). Dictated by: Aramis Muñoz M.D. on 03/14/2024 at 9:21 Approved by: Aramis Muñoz M.D. on 03/14/2024 at 9:23
== END ==
PROVIDERS: PCP Internal Medicine; Referring Provider Internal Medicine; Visit Provider Internal Medicine
DX: E04.1 Nontoxic single thyroid nodule (principal)
CPT/HCPCS: 76536

== ENCOUNTER → 2024-03-31 15:10 | Outpatient (CLI) | payer MEDICARE, OTHER, SELFPAY ==
[2024-03-31 16:10] LABS: Add Manual Diff / Slide Review NO; Basophils Absolute Auto 0 /uL (0-100); Basophils Percent Auto 0.2 % (0-2); Eosinophils Absolute Auto 0 /uL (0-450); Hematocrit 47.3 % (41-53); Hemoglobin 15.6 g/dL (13.5-17.5); Lymphocytes Absolute Auto 500 /uL (1100-4500); Lymphocytes Percent Auto 5.5 % (25-40); Monocytes Absolute Auto 200 /uL (0-900); Monocytes Percent Auto 2.6 % (3-14); Neutrophils Absolute Auto 8100 /uL (1500-7000); Neutrophils Percent Auto 91.7 % (50-75); Platelet Count 243 X10^3/uL (150-400); Red Cell Distribution Width 15.3 % (11.6-14.8); White Blood Cell Count 8.9 X10^3/uL (4.5-11.0)
[2024-03-31 16:20] LABS: C-Reactive Protein Quant < 0.5 mg/dL (<1.0)
[2024-03-31 17:22] LABS: Erythrocyte Sedimentation Rate 5 MM/HR (0-15)
== END ==
PROVIDERS: PCP Internal Medicine; Referring Provider Ophthalmology; Visit Provider Ophthalmology
DX: H34.12 Central retinal artery occlusion, left eye (principal)
CPT/HCPCS: 36415; 85025; 85651; 86140

== ENCOUNTER → 2024-04-23 15:05 | Outpatient (CLI) | payer MEDICARE, OTHER, SELFPAY ==
--- NOTE | 2024-04-23 | PATH_ITS ---
Note [facility] Accession Number: [id number] TESTS RESULT FLAG UNITS REF RANGE LAB Clinician Provided Cytology Information No. of containers..06 Previously Prepared Cytology Slide 35 Unknown Storage/container code(s) Source: RIGHT THYROID NODULE #1 DIAGNOSIS: RIGHT THYROID NODULE #1 NON-DIAGNOSTIC. [place] CATEGORY I. UNSATISFACTORY. INSUFFICIENT CELLULAR MATERIAL FOR EVALUATION. Pathologist ICD10: E04.1 Signed out by: Coby Magdaleno MD, Pathologist NPI- [id number] Performed by: Andrea Jones, [place] ([facility]) Gross description: 30 CC, PINK, HAZY RECEIVED IN [employer] WHITE CAP CONTAINER. RECEIVED 8 ALCOHOL FIXED SLIDES IN 2 GREEN CAP COFFINS. RECEIVED 8 FIXED STAINED SLIDES IN 2 COFFINS. RECEIVED 1 RNA VIAL. : 05-22-2024 LEE ANN /DILLAN 04/24/2024 1244 Local FLAG LEGEND: L-Low Normal,H-High Normal,LL-Alert Low,HH-Alert High <-Panic Low,>-Panic High,A-Abnormal,AA-Critical Abnormal Performed at: 01 [address] [facility], [place] [address] Malcolm Cohen MD, Performed at: [address], [place], [place] [id number] MD Malcolm Cohen MD Phone: [phone]
--- NOTE | 2024-04-23 15:13 | DI.US.S_ITS ---
PROCEDURE: US FINE NEEDLE ASPIRATION INDICATIONS: SINGLE THYROID NODULE TECHNIQUE: The indications, alternatives, benefits, risks, and complications of the procedure were explained to the patient. Written informed consent was obtained and placed in the chart. The thyroid region was examined sonographically and a site was chosen for ultrasound guided percutaneous sampling. The skin was prepared and draped in the usual fashion, and anesthetized with 1% lidocaine infiltrated from the skin down to the thyroid gland. Multiple passes were then performed, with contents emptied into an appropriate pathology specimen container. A bandage was applied to the area of access at completion of the study. COMPARISON: None. FINDINGS: Location(s) of lesion(s) sampled: Right [place]: 25 gauge hypodermic needles. Number of passes: 9 Medications: 1% lidocaine for local anaesthesia. Complications: None. IMPRESSION: Successful ultrasound-guided thyroid nodule fine needle aspiration, with cytology results pending. Please see chart below for management recommendations based on cytology results. [facility] System ReportingRecommendationsNon-diagnostic* Repeat US-guided FNA, with on-site cytology evaluation if possible. * Repeated non-diagnostic nodules without high suspicion US features: close observation vs surgical consult. * Consider surgery if nodule has high suspicion US features, grows >20% in 2 dimensions on followup, or patient has clinical risk factors for malignancy. Benign* If nodule has high suspicion US features: repeat US and FNA within 12 months. * If nodule has low to intermediate suspicion US features: repeat US at 12-24 months. If nodule grows (20% increase in at least 2 dimensions, with minimal increase of 2 mm or >50% change in volume), or development of new suspicious US features, then repeat FNA or continue followup. * If nodule has very low suspicion US features: followup US at >24 months. Atypia of undetermined significance, follicular lesion of undetermined significanceRepeat FNA, molecular testing, followup US, or surgical consult.Follicular neoplasm, suspicious for follicular neoplasmSurgical consult; also consider molecular testing. Suspicious for malignancySurgical consult.MalignantSurgical consult. Dictated by: Alfredito Olmedo M.D. on 04/23/2024 at 20:56 Approved by: Alfredito Olmedo M.D. on 04/23/2024 at 20:57
== END ==
PROVIDERS: PCP Internal Medicine; Referring Provider Internal Medicine; Visit Provider Internal Medicine
DX: E04.1 Nontoxic single thyroid nodule (principal)
CPT/HCPCS: 10005

== ENCOUNTER 2024-07-14 17:30 | Emergency (ER) | payer MEDICARE, OTHER, SELFPAY ==
[2024-07-14 17:37] VITALS: BP 175/101; PULSE 84; RESP 17; TEMP 36.6; O2SAT 98; BMI 34.8
[2024-07-14] MEDS: TET,DIPH,PERTUSS(ACELL),VAC/PF 0.5 ML SYRINGE IM (19:02)
[2024-07-14 19:30] VITALS: BP 167/80; PULSE 75; RESP 18; O2SAT 99
--- NOTE | 2024-07-14 19:36 | ED_ITS ---
HPI - Wound/Laceration <Zeeshan Wilson PA-C - Last Filed: 07/15/24 14:55> General Chief Complaint: Wound/Laceration Stated Complaint: hand laceration Time Seen by Provider: 07/14/24 18:22 Source: patient Mode of arrival: Ambulatory History of Present Illness HPI narrative: 69-year-old male with past medical history AFib, hyperlipidemia, on Eliquis presents to the ED status post a right 5th finger laceration just prior to arrival. Patient states that he accidentally injured his thumb on a metal portion of the vacuum poultry cleaner while cleaning. Patient has a laceration to the palmar aspect of the right thumb. Bleeding is controlled with pressure. Patient denies numbness, tingling, weakness. Tetanus status is unknown. Related Data Home Medications Medication Instructions Recorded Confirmed apixaban 5 mg tablet (Eliquis) 5 mg PO BID ##0 02/05/16 07/05/22 flecainide 100 mg tablet 100 mg PO SEE INSTRUCTIONS ##0 02/05/16 07/05/22 timolol maleate 0.5 % eye drops 1 drp OPHTH DAILY ##0 02/05/16 07/05/22 latanoprost drp EYE-BOTH DAILY 11/23/18 07/05/22 atorvastatin 20 mg tablet 20 mg PO DAILY 01/02/22 07/05/22 losartan 50 mg tablet (Cozaar) 50 mg PO BIDP PRN Atrial 01/02/22 07/05/22 Fibrillation #0 tabs metoprolol tartrate 25 mg tablet 25 mg PO DAILY 01/02/22 07/05/22 Previous Rx's Medication Instructions Recorded cephalexin 500 mg capsule 500 mg PO QID 5 days #20 caps 07/14/24 Allergies Allergy/AdvReac Type Severity Reaction Status Date / Time shellfish derived Allergy Intermediate Swelling Verified 07/14/24 17:40 of Lip/Tongue/Throat Review of Systems <Zeeshan Wilson PA-C - Last Filed: 07/15/24 14:55> Constitutional Constitutional: Denies chills, Denies fatigue, Denies fever(s), Denies frequent falls, Denies lethargy and Denies weakness Eyes Eyes: Denies change in vision, Denies eye discharge, Denies irritation and Denies loss of vision ENT Ears, Nose, Mouth, and Throat: Denies change in voice, Denies dizziness, Denies neck pain, Denies sore throat and Denies throat swelling Cardiovascular Cardiovascular: Denies chest pain, Denies irregular heart rhythm, Denies lightheadedness, Denies palpitations, Denies dyspnea, Denies dyspnea on exertion and Denies orthopnea Respiratory Respiratory: Denies cough, Denies dyspnea, Denies dyspnea on exertion and Denies wheezing Gastrointestinal Gastrointestinal: Denies abdominal pain, Denies change in bowel habits, Denies diarrhea, Denies nausea and Denies vomiting Musculoskeletal Musculoskeletal: Denies neck pain and Denies numbness Integumentary/Breasts Skin/Breast: Denies pruritus, Denies erythema, Denies rash and Denies wounds Comments: Right thumb laceration Neurologic Neurologic: Denies behavioral changes, Denies confusion, Denies dizziness, Denies frequent falls, Denies loss of vision, Denies numbness and Denies weakness Psychiatric Psychiatric: Denies anxiety, Denies behavioral changes, Denies confusion, Denies depression, Denies homicidal ideation and Denies suicidal ideation Endocrine Endocrine: Denies fatigue, Denies flushing and Denies palpitations Hematologic/Lymphatic Hematologic/Lymphatic: Denies easy bruising Allergic/Immunologic Allergic/Immunologic: Denies urticaria, Denies throat swelling and Denies wheezing Patient History <Zeeshan Wilson PA-C - Last Filed: 07/15/24 14:55> Surgical History H/O cardiac radiofrequency ablation History of knee surgery Social History household members: spouse Smoking Status: Never smoker alcohol intake: never Smoking Status: Never smoker Exam <Zeeshan Wilson PA-C - Last Filed: 07/15/24 14:55> Narrative Exam Narrative: Const General:?cooperative, healthy appearing and comfortable [facility] Head:?normal to inspection Ears:?hearing grossly normal bilaterally Nose:?external nose normal Face and sinus:?normal facial exam and sinuses nontender Mouth:?oral mucosae normal Throat:?posterior oropharynx normal Eyes General:?appearance normal, both eyes and all related structures Neck Neck:?normal visual inspection and no lymphadenopathy noted Resp Effort & Inspection:?normal respiratory effort Auscultation:?clear to auscultation bilaterally Cardio Rate:?regular rate Rhythm:?regular rhythm Integumentary There is a 2 cm flap lesion to the palmar aspect of the right thumb. Bleeding is controlled with pressure. No internal structures visualized on exam. Full range of motion. Strength and sensation is intact. Patient is neurovascularly intact. Neuro General:?patient alert, patient awake and patient oriented x3 Initial Vital Signs Initial Vital Signs: Vital Signs Temperature 98 F 07/14/24 17:37 Pulse Rate 84 07/14/24 17:37 Respiratory Rate 17 07/14/24 17:37 Blood Pressure 175/101 H 07/14/24 17:37 Pulse Oximetry 98 07/14/24 17:37 Oxygen Delivery Method Room Air 07/14/24 17:37 <Phu Cavazos MD - Last Filed: 07/17/24 20:10> Initial Vital Signs Initial Vital Signs: Vital Signs Temperature 98 F 07/14/24 17:37 Pulse Rate 84 07/14/24 17:37 Respiratory Rate 17 07/14/24 17:37 Blood Pressure 175/101 H 07/14/24 17:37 Pulse Oximetry 98 07/14/24 17:37 Oxygen Delivery Method Room Air 07/14/24 17:37 Procedures <Zeeshan Wilson PA-C - Last Filed: 07/15/24 14:55> Laceration Repair Laceration 1: Site: hand Side (If applicable): right Size (cm): 2 Description: flap Local Anesthetic: lidocaine 1% Amount of anesthesia used (mL): 2 Pre-repair: wound explored, irrigated extensively and deep structures intact Skin layer closed with: nylon Skin layer suture size: 5-0 Number of sutures: 6 Technique: simple, interrupted Course <Zeeshan Wilson PA-C - Last Filed: 07/15/24 14:55> Orders Ordered: Discontinued Medications Diphtheria/Tetanus/Acell Pertussis (Tet,Diph,Pertuss(Acell),Vac/Pf 0.5 Ml Syringe) 0.5 ml IM .ONCE ONE Stop: 07/14/24 17:41 Last Admin: 07/14/24 19:02 Dose: 0.5 ml Documented By: COURTNEY Vital Signs Vital signs: Vital Signs - 8 hr 07/14/24 17:37 07/14/24 19:30 Temperature 98 F Pulse Rate 84 75 Respiratory Rate 17 18 Blood Pressure 175/101 H 167/80 H Pulse Oximetry 98 99 Oxygen Delivery Method Room Air <Phu Cavazos MD - Last Filed: 07/17/24 20:10> Orders Ordered: Discontinued Medications Diphtheria/Tetanus/Acell Pertussis (Tet,Diph,Pertuss(Acell),Vac/Pf 0.5 Ml Syringe) 0.5 ml IM .ONCE ONE Stop: 07/14/24 17:41 Last Admin: 07/14/24 19:02 Dose: 0.5 ml Documented By: RB Vital Signs Vital signs: Vital Signs - 8 hr 07/14/24 17:37 07/14/24 19:30 Temperature 98 F Pulse Rate 84 75 Respiratory Rate 17 18 Blood Pressure 175/101 H 167/80 H Pulse Oximetry 98 99 Oxygen Delivery Method Room Air MDM - Wound/Laceration <Zeeshan Wilson PA-C - Last Filed: 07/15/24 14:55> MDM Narrative Medical decision making narrative: 69-year-old male with past medical history AFib, hyperlipidemia, on Eliquis presents to the ED status post a right 5th finger laceration just prior to arrival. Laceration repaired with 6 sutures. Tetanus was updated today. Sutures will need to be removed in 7-10 days. Wound care and signs of infection discussed with patient. Patient is leaving to [place] for a week of vacation. Therefore prescribed antibiotics prophylactically. ED return precautions discussed with patient. Patient verbalized understanding. Medical records reviewed: Yes Discharge Plan Departure Patient Disposition: Home Clinical Impression: Laceration Instructions: DI for Laceration Repair Activity Restrictions/Additional Instructions: Were evaluated in the ED today for a finger injury. Your laceration was repaired with 6 sutures. Please keep your wound clean and dry for the 1st 24 hours, following which you may wash gently with soap and water. Please avoid submerging your finger in a bath or pool. You are being prescribed antibiotics as a precautionary measure. Please take those as prescribed. The sutures will need to be removed in 7-10 days. You may return to the ED, go to a walk-in clinic, urgent care or your PCP's office for suture removal. Your tetanus was updated today, which will be valid for the next 10 years. Please watch for signs of infection including worsening redness, swelling, warmth, pain, discharge. Please seek medical attention if UC signs of infection. Prescriptions: New cephalexin 500 mg capsule 500 mg PO QID 5 Days Qty: 20 0RF No Action latanoprost EYE-BOTH DAILY Eliquis 5 MG tablet 5 mg PO BID Qty: 0 flecainide 100 MG tablet 100 mg PO SEE INSTRUCTIONS Qty: 0 timolol maleate 0.5 % drops 1 drp OPHTH DAILY Qty: 0 losartan [Cozaar] 50 mg tablet 50 mg PO BIDP PRN (Reason: Atrial Fibrillation) Qty: 0 metoprolol tartrate 25 mg tablet 25 mg PO DAILY atorvastatin 20 mg tablet 20 mg PO DAILY Referrals: Karine Kaur MD [Primary Care Provider] - Stand Alone Forms: Patient Portal/API/Survey ED Sign-out <Phu Cavazos MD - Last Filed: 07/17/24 20:10> Cosign ED Attending Cosignature Attestation: I was immediately available in the department for consultation. ?This doc umentation has been reviewed and I agree with assessment and plan. Supervised by Phu Cavazos MD
== END 2024-07-14 19:30 | disposition home or self-care (01) ==
PROVIDERS: Emergency Provider Student in an Organized Health Care Education/Training Program; PCP Internal Medicine
DX: S61.216A Laceration without foreign body of right little finger without damage to nail, initial encounter (principal); W26.8XXA Contact with other sharp object(s), not elsewhere classified, initial encounter; Z23 Encounter for immunization; Z79.01 Long term (current) use of anticoagulants
CPT/HCPCS: 12001; 90471; 99283; 90715